=== PATIENT | male | born 1990 | race Caucasian/White ===

== ENCOUNTER 2021-10-28 02:03 | Emergency (ER) | payer SELFPAY ==
[2021-10-28 02:10] VITALS: PULSE 89; RESP 20; TEMP 36.3; O2SAT 100
--- NOTE | 2021-10-28 02:23 | CRLHL7_ITS ---
For Patients: As a result of the Century Cures Act, medical imaging exams and procedure reports are released immediately into your electronic medical record. You may view this report before your referring provider. If you have questions, please contact your health care provider. INDICATION: Flank and testicular pain. COMPARISON: None available TECHNIQUE: CT examination of the abdomen and pelvis was performed without contrast enhancement using 3 mm thick axial sections from the lung bases through the pubic symphysis. Oral contrast was not administered. Please note that all CT scans at this facility use dose modulation, iterative reconstruction, and/or weight-based dosing when appropriate to reduce radiation dose to as low as reasonably achievable. FINDINGS: There is mild left hydronephrosis and mild left hydroureter extending to a 3 millimeter left UVJ calculus. There is a nonobstructive 2 millimeter calculus located in the interpolar left kidney. There are two 2 millimeter nonobstructive calculi in the lower pole of the right kidney. There is subtle increased medullary density throughout both kidneys consistent with mild medullary nephrocalcinosis. In the abdomen, the unenhanced liver, spleen, pancreas, and adrenals are normal in appearance. The unenhanced kidneys are normal in appearance. The gallbladder is normal in appearance. The abdominal aorta is normal in caliber with no sign of dilatation. There is no sign of retroperitoneal mass or adenopathy. The stomach, loops of small bowel, and colon in the abdomen are normal in appearance. In the pelvis, the appendix is normal in appearance with no sign of inflammatory process. The loops of small bowel, colon, and rectum in the pelvis are normal in appearance. The prostate is normal in appearance. The urinary bladder is normal in appearance. There is no sign of pelvic or inguinal mass or adenopathy. There is no sign of free air or free fluid in the abdomen or pelvis. The lung bases are clear. The osseous structures are normal in appearance for the patient`s age. IMPRESSION: Mild left hydronephrosis and left hydroureter produced by a 3 millimeter left UVJ calculus. CT of the abdomen shows minimal bilateral nonobstructive nephrolithiasis with mild bilateral medullary nephrocalcinosis. CT of the pelvis shows no additional abnormality. Please note that all CT scans at this facility use dose modulation, iterative reconstruction, and/or weight-based dosing when appropriate to reduce radiation dose to as low as reasonably achievable. Dictated by Fran Camarillo MD @ 10/28/2021 3:29:11 AM (Electronically Signed)
--- NOTE | 2021-10-28 02:28 | ED_ITS ---
HPI - General Adult General Time Seen by Provider: 02:20 Date Seen: 10/28/21 Chief complaint: Flank Pain Stated complaint: Kidney stone and testicular pain Time Seen by Provider: 10/28/21 02:23 Source: patient Mode of arrival: ambulatory Limitations: language barrier History of Present Illness HPI narrative: Patient is a 31-year-old male who presents with a 2 hour history of left flank pain radiating into his left testicle. No hematuria. He does have a history of kidney stones. No fevers or chills. He took some Tylenol but is currently in severe pain. No chronic health problems. He takes no medications regularly. Related Data Home Medications Medication Instructions Recorded Confirmed tramadol 10/28/21 Allergies Allergy/AdvReac Type Severity Reaction Status Date / Time No Known Drug Allergies Allergy Verified 10/28/21 02:16 [facility] Medical History (Updated 10/28/21 @ 03:35 by Adalid Gerardo MD) Kidney stone Exam Narrative: Exam Narrative: Vitals noted. HEENT: Conjunctiva clear. Tympanic membranes are pearly white bilaterally. Posterior pharynx is clear without erythema or exudate. Neck is supple without adenopathy, thyromegaly, carotid bruit. Lungs: Clear to auscultation in all hopper. No wheezes, rales, rhonchi. Heart: Regular rate and rhythm without murmur. Abdomen: Soft and nontender. No guarding, rigidity, rebound. Bowel sounds are normal. No palpable masses. He has left CVA tenderness. He has left te sticular discomfort but no swelling. Extremities: No cyanosis or edema. Good distal pulses. Skin: No abnormalities noted of the exposed skin. Neurologic: Awake, alert, fully oriented. Neurologic exam is nonfocal. Const: Vital Signs, click to edit/add: Vital Signs - 24 hr 10/28/21 02:10 10/28/21 02:32 Temperature 97.3 F L Pulse Rate [Left P ulse Oximeter] 89 Respiratory Rate 20 Blood Pressure [Le ft Upper Arm] 134/89 Pulse Oximetry 100 Documenting provider has reviewed patient's vital signs: yes Course Course Hospital Course: Patient was seen and examined. Urinalysis, CT, IV are ordered. He is given Dilaudid 0.5 mg IV. A 1 L bolus of normal saline is ordered. Reevaluation(s) Reevaluation #1: The patient's pain improved but then did return. He was given another dose of Dilaudid 0.5 mg IV as well as Toradol [address] scan shows a 3 mm stone at the UVJ with mild hydronephrosis. We discussed this is likely to pass on its own. Vital Signs Vital signs: Initial Vital Signs Temperature 97.3 F L 10/28/21 02:10 Temperature Source Temporal Artery Scan 10/28/21 02:10 Pulse Rate 89 10/28/21 02:10 Respiratory Rate 20 10/28/21 02:10 Pulse Oximetry 100 10/28/21 02:10 Oxygen Delivery Method 10/28/21 02:10 Vital Signs Temperature 97.3 F L 10/28/21 02:10 Pulse Rate 89 10/28/21 02:10 Respiratory Rate 20 10/28/21 02:10 Pulse Oximetry 100 10/28/21 02:10 Temperature 97.3 F L 10/28/21 02:10 Pulse Rate 89 10/28/21 02:10 Respiratory Rate 20 10/28/21 02:10 Blood Pressure 134/89 10/28/21 02:32 Pulse Oximetry 100 10/28/21 02:10 Discharge Plan Discharge Clinical Impression: Kidney stone Patient Disposition: Home, Self-Care Condition: Improved Additional Instructions: Push fluids. Take Tylenol or ibuprofen for mild pain. Take oxycodone for severe pain. Follow-up in the clinic if you are still having pain in another two or three days. Prescriptions: No Action tramadol 0RF Stand Alone Forms: [employer] Info Instructions
[2021-10-28] MEDS: HYDROmorphone 0.5 mg/0.5 ml inj IVP ×2 (02:30→03:49)
[2021-10-28 02:32] VITALS: BP 134/89
[2021-10-28] MEDS: 0.9 % SODIUM CHLORIDE 1000 ml 1,000 ML IV (02:42)
[2021-10-28 03:47] VITALS: BP 132/82; PULSE 87; RESP 18; O2SAT 100
[2021-10-28] MEDS: KETOROLAC 30 MG/ML inj IVP (03:49)
[2021-10-28 04:08] LABS: Appearance Urine Cloudy (Clear); Bilirubin Urine Negative (Negative); Blood Urine 3+ (Negative); Color Urine Yellow (Yellow); Glucose Urine Negative (Negative); Ketones Urine Trace (Negative); Leukocyte Esterase Urine Negative (Negative); Nitrite Urine Negative (Negative); Protein Urine Trace (Negative); Specific Gravity Urine 1.025 (1.000-1.030); Urobilinogen Urine 0.2 (0.2-1.0); pH Urine 6.5 (5.0-8.5)
[2021-10-28 05:53] VITALS: BP 123/79; BP 134/82; PULSE 82; PULSE 89; RESP 18; O2SAT 98; O2SAT 99
== END 2021-10-28 04:40 | disposition home or self-care (01) ==
LOC: ED 04:23
PROVIDERS: Emergency Provider Family Medicine
DX: N13.2 Hydronephrosis with renal and ureteral calculous obstruction (principal)
CPT/HCPCS: 74176; 81003; 81015; 87086; 96374; 96375; 96376; 99283; 99284; J1170; J1885; J7030